=== PATIENT | female | born 1985 | race Caucasian/White ===

== ENCOUNTER 2016-11-21 12:15 | Emergency (ER) | payer MEDICAID ==
[2016-11-21 13:02] VITALS: BMI 39.4
[2016-11-21 14:06] LABS: URINE BACTERIA RARE (<OCC); URINE BILIRUBIN NEGATIVE (NEGATIVE); URINE BLOOD NEGATIVE (NEGATIVE); URINE COLOR Straw (YELLOW); URINE GLUCOSE (UA) 1+ mg/dL (Normal); URINE KETONE NEGATIVE (NEGATIVE); URINE LEUKOCYTE ESTERASE NEG Leu/uL (Negative); URINE PROTEIN NEGATIVE (NEGATIVE); URINE UROBILINOGEN NORMAL mg/dL (0.2-1.0); WBC URINE 1 /hpf (0-5)
--- NOTE | 2016-11-21 21:59 | OBHP ---
Datetime: 11/21/2016 13:01 IP Adm Impression: , intrauterine ; No Active Labor IP Admit Plan: Discharge home Admit Comment, IP Provider: 31 yo , LMP unsure, revised NEPTALI 01/12/17, EGA 32w 4d by patient by s yoselyn, c/o worsening LBP and vaginal pressure, since 1100 hours. Symptoms started yesterday, got better and returned this morning. Not sexually active for "months. (+) AFM; denies LOF, VB. +/- Ctx. [facility] care: [facility]; last visit 11/13/16. 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 2010, 7lb 4oz, [facility]; no complications. P PATIENT CARE: 13 x monthly x5. Denies H/O STIs PMH: denies PSH: c/S x 2 NKDA Meds: PNV - QD Soc Hx: denies tobacco, illicit drug or EtOH use. x 11 years. Unemployed. Fam Hx: Mother alive 52 y.o. Father alive 59 y.o. - both, no med issues. P.E.: as above. Obese, in NAD. Awake, alert, oriented to time, person and place. Assessment: 31 yo P2, previous C/S x 2; pelvic pressure. No evidence of PTL at this time. R/O UTI. Most likely, musculoskeletal pain. Category 1 tracing. Clinically stable. Plan: 1) U/A 2) Observe. Addendum: 1410 hours U/A: essentially negative Assessment: as above. Clincally stable. Plan: 1) discharge home 2) Advised to drink half body weight in ounces of water daily 3) reviewed S/S PTL 4) Tylenol, PRN, Pain 6) Keep scheduled appointments Pelvic Type - PN: Adequate Extremities - PN: Normal Abdomen - PN: Normal Back - PN: Normal Breast - PN: Not Done Lungs - PN: Normal Heart - PN: Normal Thyroid - PN: Not Done Neurologic - PN: Normal HEENT - PN: Normal General - PN: Normal Presentation-Admit: Vertex FHR - Baseline A Provider: 135 Contraction Comments Provider: none Comments, ACOG Physical Exam: Back: no CVA tenderness Abdomen: Obese. Soft, non tender in all quadrants. Healed Pfannenstiel and laparoscopic scars. Fun onesimo height 34.5 cm. +/- mild suprapubic tenderness All other systems reviewed and are negative Gestation - Est Wks by US: 32w 4d EGA AdmitDate IP: 32.4 Vital Signs Provider: Reviewed IP Chief Complaint: Maternal discomfort NICHD Variability Prov Fetus A: Moderate 6-25bpm NICHD Accel Fetus A IP Provider: 15X15 FHR Category Provider Fetus A: Category I NICHD Decel Fetus A IP Provider: None Dilatation, Provider: 0 Effacement, Provider: 0 Station, Provider: high Genitourinary Exam: Normal DTRs - PN: Not Done
== END 2016-11-21 14:16 | disposition home or self-care (01) ==
LOC: C.EROB 12:15
DX: O26.893 Other specified pregnancy related conditions, third trimester (principal); Z3A.32 32 weeks gestation of pregnancy

== ENCOUNTER 2016-11-30 01:05 | Emergency (ER) | payer MEDICAID ==
[2016-11-30 01:47] VITALS: BMI 39.6
[2016-11-30] MEDS ORDERED: Lactated Ringer's 1,000 ML IV ONE (01:50)
[2016-11-30 02:13] LABS: SQUAMOUS EPITHIAL 4 /hpf (0-5); URINE BACTERIA RARE (<OCC); URINE BILIRUBIN NEGATIVE (NEGATIVE); URINE BLOOD NEGATIVE (NEGATIVE); URINE CLARITY Clear (Clear); URINE COLOR Straw (YELLOW); URINE GLUCOSE (UA) NORMAL (Normal); URINE LEUKOCYTE ESTERASE NEG Leu/uL (Negative); URINE NITRATE NEGATIVE (NEGATIVE); URINE PROTEIN NEGATIVE (NEGATIVE); URINE UROBILINOGEN NORMAL mg/dL (0.2-1.0)
--- NOTE | 2016-11-30 03:21 | OBHP ---
Datetime: 11/30/2016 01:51 IP Adm Impression: , intrauterine ; Intact Membranes IP Adm Impression Other: contractions IP Admit Plan: Observation/Evaluation Admit Comment, IP Provider: 31 y.o. , LMP unsure, revised NEPTALI 01/12/17, EGA 33w 6d, per patient by sono at approx 2 months, c.o "some liqid like water running down my leg after I got out of the hayder wer" at midnight. (+) AFM; denies VB or Ctx. Not had sexual relations since beginnng of . [facility]. Last visit 11/29/16; next visit in 2 weeks; no iissues to date, other than prev C/S x 2 P Ob: C/S x 2: both males, 2007, 5lb 4oz, [facility] at term. 2010, 7lb 2oz, [facility]; no comlic ations after either delivery. P [employer]: 14 x monthly x 5. Denies STIs or abnormal Pap PMH: denies PSH: C/S x 2 NKDA Meds: PNV Soc Hx: denies tobacco, illicit drug or EtOH use. Maried x 12 years. Lives with and sons Fam Hx: Mother alvie 54. Father alive 64; both, no med issues. No known fam h/o cancer P.E.: as above. Obese in NAD. Awake, alert, oriented to time, person and place. Pleasant and coope rative Assessment: 31 yo P2, prev C/S x 2 - no evidence of PPROM. (+) uterine contractioins - R/O PTL. Ca tegory 1 tracing. Clncally stable. Plan: 1) IVFs 2) U/A 3) Observe Addendum: 0250 hours - S/P 1 litre IVF - no contractions on toco. Patient continues to not feel any contractions. - U/A negative Assessment: 31 yo P2, prev C/S x 2, no PPROM; cntractions resolved. Category 1 tracing. Advised to increase p.o. water intake ( 1/2 body weight in ounces of water). Clinically stble Plan: 1) Discharge home 2) reviewed S/S PTL 3) Keeep next scheduled appointment Pelvic Type - PN: Adequate Extremities - PN: Normal Abdomen - PN: Normal Back - PN: Normal Breast - PN: Not Done Lungs - PN: Normal Heart - PN: Normal Thyroid - PN: Not Done Neurologic - PN: Normal HEENT - PN: Normal General - PN: Normal FHR - Baseline A Provider: 130 Membranes, Provider: Intact Contraction Comments Provider: 2-5 minutes Comments, ACOG Physical Exam: Abdomen: Obese. Soft. fundalheight 35cm. Healed Pfannenstiel scar Perineum: dry (+) odor of urine Spec: No pooling; nitrazine (-) All other systems reviewed and are negative Gestation - Est Wks by US: 33w 6d EGA AdmitDate IP: 33.6 Vital Signs Provider: Reviewed; Within Normal Limits IP Chief Complaint: Suspected ruptured membranes NICHD Variability Prov Fetus A: Moderate 6-25bpm NICHD Accel Fetus A IP Provider: 15X15 FHR Category Provider Fetus A: Category I NICHD Decel Fetus A IP Provider: None Dilatation, Provider: 0 Effacement, Provider: 0 Station, Provider: high Genitourinary Exam: Normal DTRs - PN: Not Done
== END 2016-11-30 03:04 | disposition home or self-care (01) ==
LOC: C.EROB 01:05
DX: O47.03 False labor before 37 completed weeks of gestation, third trimester (principal); Z3A.33 33 weeks gestation of pregnancy
CPT/HCPCS: 81001; 99283; J7120